=== PATIENT | female | born 1960 | race Caucasian/White ===

== ENCOUNTER → 2021-05-05 14:58 | Outpatient (CLI) | payer OTHER, SELFPAY ==
--- NOTE | 2021-05-05 | DI.RAD.S_ITS ---
PROCEDURE: XR THORACIC SPINE 2V INDICATIONS: UPPER BACK PAIN TECHNIQUE: 2 views of the thoracic spine were acquired. COMPARISON: None. FINDINGS: Bones: No fractures or dislocations. No suspicious bony lesions. 12 pairs of ribs are noted, and appear intact where visualized. Soft tissues: No paravertebral stripe thickening. IMPRESSION: No acute osseous abnormality. Dictated by: Jack Ram M.D. on 05/05/2021 at 17:16 Approved by: Jack Ram M.D. on 05/05/2021 at 17:18
--- NOTE | 2021-05-05 15:04 | DI.RAD.S_ITS ---
PROCEDURE: XR LUMBAR SPINE MIN 4V INDICATIONS: NECK AND BACK PAIN TECHNIQUE: 5 views of the lumbar spine were acquired, including bilateral oblique views. COMPARISON: None. FINDINGS: Bones: 5 nonrib-bearing vertebrae are present. There is loss of normal lumbar lordosis. Mild grade 1 retrolisthesis of L3 on L4. Mild multilevel disc space narrowing and endplate osteophyte formation, as well as facet hypertrophy throughout the mid and lower lumbar spine. No vertebral body compression fractures. No suspicious bony lesions. Soft tissues: Overlying bowel gas pattern is normal. No suspicious soft tissue calcifications. IMPRESSION: 1. Multilevel degenerative disc and facet disease. 2. No acute fracture. No osseous lesion. If symptoms and/or clinical suspicion for pathology persist, further assessment with repeat, or advanced imaging (e.g., CT, MRI, or bone scan) may be helpful for further assessment. Dictated by: Leobardo Del Rio M.D. on 05/05/2021 at 16:31 Approved by: Leobardo Del Rio M.D. on 05/05/2021 at 16:47
--- NOTE | 2021-05-05 15:04 | DI.RAD.S_ITS ---
PROCEDURE: XR CERVICAL SPINE 4V OR 5V INDICATIONS: NECK AND BACK PAIN TECHNIQUE: 5 views of the cervical spine acquired. COMPARISON: None. FINDINGS: Bones: No fractures or dislocations to the T2 level. Oblique images demonstrate no bony foraminal stenoses. Mild multilevel disc space narrowing and endplate osteophyte formation. Mild multilevel foraminal stenosis. Mild facet hypertrophy throughout the mid and lower lumbar spine. Soft tissues: No prevertebral soft tissue swelling. IMPRESSION: 1. Mild multilevel degenerative disc and facet disease. 2. No acute fracture. No osseous lesion. If symptoms and/or clinical suspicion for pathology persist, further assessment with repeat, or advanced imaging (e.g., CT, MRI, or bone scan) may be helpful for further assessment. Dictated by: Leobardo Del Rio M.D. on 05/05/2021 at 16:13 Approved by: Leobardo Del Rio M.D. on 05/05/2021 at 16:47
== END ==
PROVIDERS: PCP Student in an Organized Health Care Education/Training Program; Referring Provider Chiropractor; Visit Provider Chiropractor
DX: M99.01 Segmental and somatic dysfunction of cervical region (principal); M99.02 Segmental and somatic dysfunction of thoracic region; M99.03 Segmental and somatic dysfunction of lumbar region; M99.04 Segmental and somatic dysfunction of sacral region; M99.05 Segmental and somatic dysfunction of pelvic region; M54.50 Low back pain, unspecified; M50.30 Other cervical disc degeneration, unspecified cervical region; M48.02 Spinal stenosis, cervical region; M51.36 Other intervertebral disc degeneration, lumbar region
CPT/HCPCS: 72050; 72070; 72110

== ENCOUNTER → 2021-05-25 16:58 | Outpatient (CLI) | payer OTHER, SELFPAY ==
--- NOTE | 2021-05-25 | DI.MRI.S_ITS ---
PROCEDURE: MR LUMBAR SPINE WO CON INDICATIONS: Vertebrogenic low back pain TECHNIQUE: Noncontrast sagittal T1 spin echo and T2 fast echo, sagittal STIR, axial T1 and T2 fast spin echo through the lumbar spine. In cases with scoliosis, additional coronal T2 fast spin echo may be performed. COMPARISON: None. FINDINGS: Image quality: Excellent. Alignment and Curvature: There is trace retrolisthesis of L3 on L4, L4 on L5. Bone Marrow: Marrow is of normal overall signal. Minimal reactive endplate changes are present at multiple levels of the lumbar spine most notable at L3-4. Schmorl's node is noted along the inferior endplate of L1. No acute vertebral body compression fractures. Spinal Cord: Conus medullaris terminates at the L1 level. Visualized cord demonstrates normal signal and size. Paraspinous Soft Tissues: No paravertebral masses. Discs: Uibv-ie-wstmwsci desiccation is present throughout the lumbar spine most severe at L3-4. L1-L2: Mild disc bulge including a left posterior paracentral/proximal foramina superimposed protrusion. There is narrowing of the left lateral recess as well as very minimal narrowing of the proximal left foramina. Epidural lipomatosis is present as well as facet and ligamentum flavum hypertrophy. L2-L3: Mild disc bulge with minimal canal narrowing. No foraminal narrowing. Epidural lipomatosis as well as facet/ligamentum flavum hypertrophy are present. L3-L4: Mild disc bulge with minimal canal narrowing. Minimal to mild bilateral foraminal narrowing with facet and ligamentum flavum hypertrophy. Epidural lipomatosis is present. L4-L5: Mild disc bulge including a left lateral/foraminal component. Minimal canal narrowing. There is mild narrowing through the right subarticular recess as well as mild foraminal narrowing. Moderate foraminal narrowing is noted on the left. Epidural lipomatosis as well as facet/ligamentum flavum hypertrophy are present. L5-S1: Mild disc bulge without spinal stenosis. Moderate bilateral foraminal narrowing with facet hypertrophy. IMPRESSION: 1. Multilevel degenerative changes. 2. Multilevel minimal canal narrowing secondary to disc bulge, as well as presence of epidural lipomatosis. 3. Multilevel foraminal narrowing most notable at L5-S1, secondary to facet arthropathy. Dictated by: Merlyn Cm M.D. on 05/26/2021 at 8:54 Approved by: Merlyn Cm M.D. on 05/26/2021 at 9:15
== END ==
PROVIDERS: PCP Physician Assistant; Referring Provider Chiropractor; Visit Provider Chiropractor
DX: M54.51 Vertebrogenic low back pain (principal); M99.13 Subluxation complex (vertebral) of lumbar region; M47.816 Spondylosis without myelopathy or radiculopathy, lumbar region; M47.817 Spondylosis without myelopathy or radiculopathy, lumbosacral region; M48.07 Spinal stenosis, lumbosacral region; E88.2 Lipomatosis, not elsewhere classified
CPT/HCPCS: 72148

== ENCOUNTER → 2021-06-14 13:30 | Outpatient (CLI) | payer OTHER, SELFPAY ==
--- NOTE | 2021-06-14 13:32 | DI.RAD.S_ITS ---
PROCEDURE: XR SHOULDER LT MIN 2V INDICATIONS: shoulder pain TECHNIQUE: 3 views of the shoulder were acquired. COMPARISON: None. FINDINGS: Bones: No suspicious bony lesions. Visualized ribs appear intact. Scattered degenerative subchondral sclerosis and spurring. Possible Hill-Sachs fracture deformity, technically unknown age. Elsewhere, no acute fracture. Soft tissues: No suspicious soft tissue calcifications. IMPRESSION: Hill-Sachs fracture deformity suggestive of prior anterior shoulder dislocation. Technically this finding is of unknown age. Mild degenerative changes. If the patient's pain or other symptoms persist, consider further evaluation with MRI Dictated by: Markel Guallpa M.D. on 06/14/2021 at 15:42 Approved by: Markel Guallpa M.D. on 06/14/2021 at 16:11
--- NOTE | 2021-06-14 13:32 | DI.RAD.S_ITS ---
PROCEDURE: XR FOOT LT MIN 3V INDICATIONS: L foot pain and swelling in arch TECHNIQUE: 3 views of the foot were acquired. COMPARISON: None. FINDINGS: Bones: No acute fractures or dislocations. No suspicious bony lesions. Mild scattered degenerative changes in the interphalangeal joints of the toes. Soft tissues: No suspicious soft tissue calcification. IMPRESSION: No acute osseous abnormality. If clinical suspicion and/or symptoms persist, additional imaging with repeat plain films, or advanced imaging (e.g. CT, MRI) may be helpful for further assessment. Dictated by: Adrien Banda M.D. on 06/14/2021 at 14:07 Approved by: Adrien Banda M.D. on 06/14/2021 at 14:09
== END ==
PROVIDERS: PCP Physician Assistant; Referring Provider Nurse Practitioner Family; Visit Provider Nurse Practitioner Family
DX: M25.512 Pain in left shoulder (principal); M79.672 Pain in left foot; M79.89 Other specified soft tissue disorders
CPT/HCPCS: 73030; 73630

== ENCOUNTER → 2021-11-01 12:57 | Outpatient (CLI) | payer OTHER, SELFPAY | PROVIDERS: PCP Physician Assistant; Referring Provider Physician Assistant; Visit Provider Physician Assistant | DX: Z78.0 Asymptomatic menopausal state (principal); Z13.820 Encounter for screening for osteoporosis | CPT/HCPCS: 77080 ==

== ENCOUNTER → 2021-11-01 13:44 | Outpatient (CLI) | payer OTHER, SELFPAY ==
[2021-11-01 15:13] LABS: COVID19 -Nasal RAPID Negative (Negative)
== END ==
PROVIDERS: PCP Physician Assistant; Referring Provider Surgery; Visit Provider Surgery
DX: Z01.812 Encounter for preprocedural laboratory examination (principal); Z20.822 Contact with and (suspected) exposure to COVID-19
CPT/HCPCS: 87635; C9803

== ENCOUNTER 2021-11-02 09:46 | Day surgery (SDC) | payer OTHER, SELFPAY ==
--- NOTE | 2021-11-02 | PATH_ITS ---
[facility] Accession Number: [id number] . 01 Material submitted: . rectum - RECTAL BIOPSY . 02 Diagnosis: Rectum, Biopsy: Hyperplastic polyp. MRV 11/04/2021 1506 Local . 02 Electronically signed: . Alma Olivares MD, Pathologist NPI- [id number] . 01 Gross description: . RECTAL BIOPSY: Received in formalin is 1 fragment(s) of alaniz, soft tissue measuring 0.2 x 0.2 x 0.2 cm submitted entirely in 1 cassette(s) /CPE 11/03/2021 0827 Local . 02 Pathologist provided ICD-10: K63.5 . 02 CPT . 527296 Specimen Comment: A courtesy copy of this report has been sent to [phone] Performed at: 01 [facility] [address] [id number] MD Mihai Brunson MD Phone: [phone] Performed at: 02 [facility] [address] [place], [place] [id number] MD Alma Olivares MD Phone: [phone]
[2021-11-02 10:07] VITALS: BP 165/94; PULSE 64; RESP 16; TEMP 36.5; O2SAT 98; BMI 28.9
[2021-11-02] MEDS: LACTATED RINGERS 1,000 ML 200 ML IV (10:13)
[2021-11-02] MEDS: fentaNYL 250 MCG/5 ML INJ IV (10:38)
[2021-11-02] MEDS: MIDAZOLAM 5 MG/5 ML VIAL IV (10:39)
--- NOTE | 2021-11-02 10:47 | PM.HP.1 ---
History of Present Illness History of Present Illness Date Patient Seen: 11/02/21 Time Patient Seen: 10:47 Chief complaint: SCREENING COLONOSCOPY Narrative: The patient presents for colorectal screening. She had a previous colonoscopy several years ago that was significant for multiple adenomatous polyps. No personal or family history of colon cancer. On further history denies any recent gastrointestinal symptoms. No nausea, vomiting, abdominal pain, loss of appetite, unexplained weight loss, change in bowel habits, diarrhea, constipation, melena, hematochezia, or bright red blood per rectum. Patient History Family & Social History Social History: household members spouse Tobacco & Substance use: Smoking Status Never smoker alcohol intake current alcohol intake frequency a few times a week Substance Use Type does not use Meds Home Medications and Allergies Home Medications Medication Instructions Recorded Confirmed Type Progest-M 200 mg PO DAILY 11/02/21 11/02/21 History metoprolol succinate 25 mg 25 mg PO DAILY 11/02/21 11/02/21 History tablet,extended release 24 hr Allergies Allergy/AdvReac Type Severity Reaction Status Date / Time No Known Drug Allergies Allergy Verified 11/02/21 09:59 Exam Vital Signs (past 8 hours): - 11/02/21 10:07 Temperature 97.7 F Pulse Rate 64 Respiratory Rate 16 Blood Pressure 165/94 H Pulse Oximetry 98 Oxygen Delivery Method Room Air Narrative Exam Narrative: GENERAL: Adult in no apparent distress HEENT: No scleral icterus CV: Regular rate, no peripheral edema LUNGS: No increased work of breathing. Patient speaks in full sentences without oxygen support. ABDOMEN: Soft, non-tender, non-distended NEURO: Nonfocal, normal strength throughout, SKIN: Warm and dry Assessment & Plan Assessment and plan (1) Personal history of colonic polyps: Status: Acute Assessment & Plan narrative: The patient requires colorectal screening and colonoscopy is recommended. Technical details were discussed. Risks, benefits, alternatives explained. Risks including but not limited to myocardial infarction, aspiration, bleeding, pain, missed lesion, incomplete examination, need for further radiographic studies, colonic perforation, and need for major abdominal surgery were discussed. All questions were answered to their satisfaction, and they are in agreement with this plan. Time Spent With Patient Critical Care time: I spent a total of [] minutes of critical care time on this patient's care today; this time is exclusive of procedural time.
--- NOTE | 2021-11-02 11:17 | P.OP.COLON_ITS ---
Operative Date/Time/Diagnoses Date of procedure: 11/02/21 Time of procedure: 11:17 Pre-op diagnosis: Personal history of colonic polyps Post-op diagnosis: same Procedure & Clinicians Study performed: Colonoscopy and polypectomy Same procedure as scheduled: Yes Indications: Personal history of colonic polyps Surgeon: Uri Montanez Procedure Notes Procedure in detail: Medications: Conscious sedation using 4mg IV midazolam and 100mcg IV of f entanyl The history and physical was performed/updated and the patient is ASA class is 2. The procedure was discussed in detail with the patient. Potential risks complications including infection, bleeding, missed diagnosis, perforation, need for surgery, and were explained. Their questions were answered and informed consent was obtained. Patient was brought to the procedure room and placed standard monitoring equipment. The patient's vital signs were monitored continuously throughout the entire procedure. Prior to starting time-out was performed. The patient was placed in the left lateral recumbent position. Procedural sedation was administered. Examination began with a thorough inspection of the perianal area there was no evidence of fissures, fistulae, external hemorrhoids or cutaneous malignancy. The colonoscopy scope was then placed into the anal canal and was advanced to the cecum, which was identified by the ileocecal valve, the appendiceal orifice and the confluence of the taenia. The scope was then slowly withdrawn examining colon thoroughly in all directions, irrigating it of any residual stool. FINDINGS 1. Rectum 5 mm polyp removed with biopsy forceps 2. Internal hemorrhoids The patient tolerated the procedure well. They will be discharged once criteria are met. The prep was of good/excellent quality. The withdrawl time was 6minutes. The sedation time was 21 minutes. Specimen(s): other (Rectal polyp) Complications: none Impression: Colonic polyp Post-procedure Recommendations: Colonoscopy in 5 years Disposition: same day surgery
[2021-11-02 11:22] VITALS: BP 183/100; PULSE 63; RESP 17; TEMP 36.1; O2SAT 99
[2021-11-02 11:26] VITALS: BP 175/100; PULSE 59; RESP 16; TEMP 36.1; O2SAT 98
[2021-11-02 11:29] VITALS: BP 171/99; PULSE 58; RESP 14
[2021-11-02 11:38] VITALS: BP 147/94; PULSE 55; RESP 14; TEMP 36.1; O2SAT 98
[2021-11-02 11:43] VITALS: BP 154/92; PULSE 52; RESP 15; O2SAT 96
== END 2021-11-02 12:00 | disposition home or self-care (01) ==
PROVIDERS: PCP Physician Assistant; Referring Provider Surgery; Visit Provider Surgery
PROC: 0DJD8ZZ Inspection of Lower Intestinal Tract, Via Natural or Artificial Opening Endoscopic (ICD-10-PCS; CPT 45378; principal; 2021-11-02 10:45)
DX: Z12.11 Encounter for screening for malignant neoplasm of colon (principal); Z86.010 Personal history of colon polyps; K64.8 Other hemorrhoids; K62.1 Rectal polyp
CPT/HCPCS: 45380; 99152; J2250; J3010

== ENCOUNTER → 2021-11-19 14:25 | Outpatient (CLI) | payer OTHER, SELFPAY ==
--- NOTE | 2021-11-19 | DI.US.S_ITS ---
PROCEDURE: US RENAL COMPLETE INDICATIONS: Chronic kidney disease, stage 3a TECHNIQUE: Real-time scanning was performed of the kidneys and bladder, with image documentation. COMPARISON: None. FINDINGS: Kidneys: Kidneys are normal in size. Right kidney measures 11.4 cm long; left kidney measures 11.2 cm long. Right renal cortical thickness is 0.7 cm; left renal cortical thickness is 0.7 cm. Renal cortical echotexture is normal. No hydronephrosis or nephrolithiasis. No suspicious solid mass lesions. Bladder: Pre-void bladder volume is 154 mL. Post-void residual is 0 mL. Pre-void images demonstrate no intraluminal masses or stones. On pre-void images, neither right nor left ureteral jets are noted with color Doppler interrogation. (Of note, ureteral jets may not be detectable in up to 25% of cases due to insufficient differences in specific gravity between ureteral and bladder urine). Miscellaneous: No free pelvic fluid. IMPRESSION: Normal renal ultrasound. Dictated by: Davis Ivan M.D. on 11/19/2021 at 14:51 Approved by: Davis Ivan M.D. on 11/19/2021 at 14:53
== END ==
PROVIDERS: PCP Physician Assistant; Referring Provider Student in an Organized Health Care Education/Training Program; Visit Provider Student in an Organized Health Care Education/Training Program
DX: N18.31 Chronic kidney disease, stage 3a (principal)
CPT/HCPCS: 76770

== ENCOUNTER → 2022-01-10 15:24 | Outpatient (CLI) | payer OTHER, SELFPAY ==
--- NOTE | 2022-01-10 | DI.MG.S_ITS ---
BILATERAL DIGITAL SCREENING MAMMOGRAM 3D/2D WITH CAD: 01/10/2022 CLINICAL: Routine screening. Comparison is made to exam dated: 12/08/2020 mammogram - outside location. The tissue of both breasts is heterogeneously dense. This may lower the sensitivity of mammography. Current study was also evaluated with a Computer Aided Detection (CAD) system. No significant masses, calcifications, or other findings are seen in either breast. There has been no significant interval change. IMPRESSION: NEGATIVE There is no mammographic evidence of malignancy. A 1 year screening mammogram is recommended. This exam was interpreted at Station ID: [id number]. NOTE: For mammograms, a report in lay terms will be sent to the patient. Approximately 15% of breast malignancies will not be visualized mammographically. In the management of a palpable breast mass, a negative mammogram must not discourage biopsy of a clinically suspicious lesion. Electronically Signed By: Rio Weems M.D. attrent/sania:01/10/2022 17:37:38 letter sent: Normal Exam ACR BI-RADS Category 1: Negative [id number]
== END ==
PROVIDERS: PCP Physician Assistant; Referring Provider Internal Medicine; Visit Provider Internal Medicine
DX: Z12.31 Encounter for screening mammogram for malignant neoplasm of breast (principal)
CPT/HCPCS: 77063; 77067

== ENCOUNTER → 2022-04-06 08:07 | Outpatient (CLI) | payer BC, SELFPAY ==
[2022-04-06 09:48] LABS: Hematocrit 37.9 % (36-46); Hemoglobin 12.8 g/dL (12.0-16.0)
[2022-04-06 10:01] LABS: Appearance Urine UA CLEAR; Bilirubin Urine UA NEGATIVE (NEGATIVE); Color Urine UA YELLOW; Glucose Urine UA NEGATIVE (Negative); Ketones Urine UA NEGATIVE (NEGATIVE); Leukocyte Esterase Urine UA NEGATIVE (NEGATIVE); Nitrite Urine UA NEGATIVE (Negative); Occult Blood Urine UA NEGATIVE (Negative); Protein Urine UA NEGATIVE (Negative); Urobilinogen Urine UA 0.2 E.U./dL (0.2)
[2022-04-06 10:09] LABS: pH Urine UA 7.5 (4.5-8.0)
[2022-04-06 10:10] LABS: Bacteria Urine None Seen; Culture Indicated Urine Cult Not Indicated; RBC Urine None Seen (0-5/HPF); Squamous Epithelial Cell Urine 1-5 /HPF (0-5/HPF); WBC Urine 0-1/HPF (0-5/HPF)
[2022-04-06 10:35] LABS: Protein (Total) Urine Random 11 mg/dL (0-12); Protein Creatinine Ratio Urine 0.13 GRAM/24H
[2022-04-06 10:36] LABS: Blood Urea Nitrogen 18 mg/dL (7-17); Calcium 8.7 mg/dL (8.4-10.2); Carbon Dioxide 27 mmol/L (22-32); Chloride 104 mmol/L (98-107); Estimated Glomerular Filt Rate 39 mL/min (>60); Glucose 87 mg/dL (80-110); HEMOLYSIS < 15 (0-50); Phosphorous 3.3 mg/dL (2.8-4.1); Potassium 4.7 mmol/L (3.4-5.1); Sodium 137 mmol/L (137-145)
[2022-04-07 08:38] LABS: Parathyroid Hormone Int 54 pg/mL (15-65)
== END ==
PROVIDERS: PCP Internal Medicine; Referring Provider Student in an Organized Health Care Education/Training Program; Visit Provider Student in an Organized Health Care Education/Training Program
DX: N05.9 Unspecified nephritic syndrome with unspecified morphologic changes (principal); D64.9 Anemia, unspecified; E83.30 Disorder of phosphorus metabolism, unspecified; N25.81 Secondary hyperparathyroidism of renal origin; N30.00 Acute cystitis without hematuria; R80.9 Proteinuria, unspecified
CPT/HCPCS: 36415; 80048; 81001; 82570; 83970; 84100; 84156; 85014; 85018

== ENCOUNTER → 2022-04-29 10:43 | Outpatient (CLI) | payer BC, SELFPAY ==
[2022-04-29 14:48] LABS: BUN Creatinine Ratio 7.3 (6-22); Blood Urea Nitrogen 12 mg/dL (7-17); Calcium 8.7 mg/dL (8.4-10.2); Carbon Dioxide 26 mmol/L (22-32); Chloride 99 mmol/L (98-107); Estimated Glomerular Filt Rate 35 mL/min (>60); Glucose 101 mg/dL (80-110); HEMOLYSIS < 15 (0-50); Potassium 4.2 mmol/L (3.4-5.1); Sodium 134 mmol/L (137-145)
== END ==
PROVIDERS: PCP Internal Medicine; Referring Provider Student in an Organized Health Care Education/Training Program; Visit Provider Student in an Organized Health Care Education/Training Program
DX: N05.9 Unspecified nephritic syndrome with unspecified morphologic changes (principal)
CPT/HCPCS: 36415; 80048

== ENCOUNTER → 2022-05-11 07:08 | Outpatient (CLI) | payer BC, SELFPAY ==
--- NOTE | 2022-05-11 | DI.US.S_ITS ---
PROCEDURE: US RENAL COMPLETE INDICATIONS: ACUTE RENAL FAILURE SYNDROM TECHNIQUE: Real-time scanning was performed of the kidneys and bladder, with image documentation. COMPARISON: [facility], , RENAL COMPLETE, 11/19/2021, 14:31. FINDINGS: Kidneys: Kidneys are normal in size. Right kidney measures 10.6 cm long; left kidney measures 0.6 cm long. Right renal cortical thickness is 10.8 cm; left renal cortical thickness is 1.6 cm. Renal cortical echotexture is normal. No hydronephrosis or nephrolithiasis. No suspicious solid mass lesions. Bladder: Pre-void bladder volume is 299 mL. Post-void residual is 0 mL. Pre-void images demonstrate no intraluminal masses or stones. On pre-void images, bilateral ureteral jets are noted with color Doppler interrogation. (Of note, ureteral jets may not be detectable in up to 25% of cases due to insufficient differences in specific gravity between ureteral and bladder urine). Miscellaneous: No free pelvic fluid. IMPRESSION: Normal sized kidneys with no evidence of hydronephrosis. Dictated by: Vasquez Saldana M.D. on 05/11/2022 at 10:38 Approved by: Vasquez Saldana M.D. on 05/11/2022 at 10:41
== END ==
PROVIDERS: PCP Internal Medicine; Referring Provider Student in an Organized Health Care Education/Training Program; Visit Provider Student in an Organized Health Care Education/Training Program
DX: N17.9 Acute kidney failure, unspecified (principal)
CPT/HCPCS: 76770

== ENCOUNTER → 2022-05-20 09:46 | Outpatient (CLI) | payer BC, SELFPAY ==
[2022-05-20 11:01] LABS: Appearance Urine UA SL CLOUDY; Bilirubin Urine UA NEGATIVE (NEGATIVE); Color Urine UA YELLOW; Glucose Urine UA NEGATIVE (Negative); Ketones Urine UA NEGATIVE (NEGATIVE); Leukocyte Esterase Urine UA NEGATIVE (NEGATIVE); Nitrite Urine UA NEGATIVE (Negative); Occult Blood Urine UA NEGATIVE (Negative); Protein Urine UA NEGATIVE (Negative); Specific Gravity Urine UA <=1.005 (1.000-1.035); Urobilinogen Urine UA 0.2 E.U./dL (0.2)
[2022-05-20 11:23] LABS: RBC Urine None Seen (0-5/HPF); WBC Urine 0-1/HPF (0-5/HPF)
[2022-05-20 11:24] LABS: Squamous Epithelial Cell Urine 10-30 /HPF (0-5/HPF)
[2022-05-20 11:25] LABS: Bacteria Urine Many (>30); Culture Indicated Urine Cult Not Indicated
[2022-05-20 12:02] LABS: Creatinine Urine Random 36.3 mg/dL; Protein (Total) Urine Random 14 mg/dL (0-12); Protein Creatinine Ratio Urine 0.38 GRAM/24H
[2022-05-20 12:03] LABS: BUN Creatinine Ratio 10.7 (6-22); Blood Urea Nitrogen 17 mg/dL (7-17); Calcium 9.3 mg/dL (8.4-10.2); Carbon Dioxide 27 mmol/L (22-32); Chloride 101 mmol/L (98-107); Estimated Glomerular Filt Rate 37 mL/min (>60); Glucose 90 mg/dL (80-110); HEMOLYSIS < 15 (0-50); Potassium 4.7 mmol/L (3.4-5.1); Sodium 137 mmol/L (137-145)
== END ==
PROVIDERS: PCP Internal Medicine; Referring Provider Student in an Organized Health Care Education/Training Program; Visit Provider Student in an Organized Health Care Education/Training Program
DX: N05.9 Unspecified nephritic syndrome with unspecified morphologic changes (principal); N30.00 Acute cystitis without hematuria; R80.9 Proteinuria, unspecified
CPT/HCPCS: 36415; 80048; 81001; 82570; 84156

== ENCOUNTER → 2022-10-06 09:51 | Outpatient (CLI) | payer BC, SELFPAY ==
[2022-10-06 10:47] LABS: Hematocrit 40.5 % (36-46); Hemoglobin 13.6 g/dL (12.0-16.0)
[2022-10-06 10:57] LABS: Creatinine Urine Random 76.1 mg/dL; Protein (Total) Urine Random 11 mg/dL (0-12); Protein Creatinine Ratio Urine 0.14 GRAM/24H
[2022-10-06 11:06] LABS: Blood Urea Nitrogen 16 mg/dL (7-17); Calcium 9.3 mg/dL (8.4-10.2); Carbon Dioxide 30 mmol/L (22-32); Chloride 99 mmol/L (98-107); Estimated Glomerular Filt Rate 40 mL/min (>60); Glucose 91 mg/dL (80-110); HEMOLYSIS < 15 (0-50); Potassium 4.7 mmol/L (3.4-5.1); Sodium 135 mmol/L (137-145)
[2022-10-08 07:30] LABS: Parathyroid Hormone Int 31 pg/mL (15-65)
== END ==
PROVIDERS: PCP Internal Medicine; Referring Provider Student in an Organized Health Care Education/Training Program; Visit Provider Student in an Organized Health Care Education/Training Program
DX: N05.9 Unspecified nephritic syndrome with unspecified morphologic changes (principal); D64.9 Anemia, unspecified; R80.9 Proteinuria, unspecified; N25.81 Secondary hyperparathyroidism of renal origin
CPT/HCPCS: 36415; 80048; 82570; 83970; 84156; 85014; 85018

== ENCOUNTER → 2023-01-11 10:06 | Outpatient (CLI) | payer BC, SELFPAY ==
--- NOTE | 2023-01-11 | DI.MG.S_ITS ---
BILATERAL DIGITAL SCREENING MAMMOGRAM 3D/2D WITH CAD: 01/11/2023 CLINICAL: Routine screening. Comparison is made to exams dated: 01/10/2022 mammogram - [facility] and 12/08/2020 mammogram - outside location. Both breasts are heterogeneously dense, which may obscure small masses (category c / 51-75% glandular tissue). Current study was also evaluated with a Computer Aided Detection (CAD) system. No significant masses, calcifications, or other findings are seen in either breast. There has been no significant interval change. IMPRESSION: NEGATIVE There is no mammographic evidence of malignancy. A 1 year screening mammogram is recommended. Based on the Tyrer Cuzick model (a risk assessment model) the patient's lifetime risk is 11.3% and her 10 year risk is 4.9%. According to the ACR, ACS, and NCCN guidelines, an annual breast MRI exam along with mammogram is recommended if the patient's lifetime risk is 20% or greater. This exam was interpreted at Station ID: [id number]. NOTE: For mammograms, a report in lay terms will be sent to the patient. Approximately 15% of breast malignancies will not be visualized mammographically. In the management of a palpable breast mass, a negative mammogram must not discourage biopsy of a clinically suspicious lesion. Electronically Signed By: Mt mckeon/sania:01/11/2023 15:31:30 copy to: CASSIA DELGADO letter sent: Normal Exam ACR BI-RADS Category 1: Negative [id number]
== END ==
PROVIDERS: PCP Internal Medicine; Referring Provider Internal Medicine; Visit Provider Internal Medicine
DX: Z12.31 Encounter for screening mammogram for malignant neoplasm of breast (principal)
CPT/HCPCS: 77063; 77067

== ENCOUNTER → 2023-03-10 10:33 | Outpatient (CLI) | payer BC, SELFPAY ==
[2023-03-10 12:12] LABS: Hematocrit 40.6 % (36-46); Hemoglobin 13.6 g/dL (12.0-16.0)
[2023-03-10 12:44] LABS: BUN Creatinine Ratio 9.7 (6-22); Blood Urea Nitrogen 15 mg/dL (7-17); Calcium 9.5 mg/dL (8.4-10.2); Carbon Dioxide 27 mmol/L (22-32); Chloride 99 mmol/L (98-107); Estimated Glomerular Filt Rate 38 mL/min (>60); Glucose 75 mg/dL (80-110); HEMOLYSIS < 15 (0-50); Potassium 4.7 mmol/L (3.4-5.1); Sodium 133 mmol/L (137-145)
[2023-03-10 14:01] LABS: Creatinine Urine Random 155.5 mg/dL
[2023-03-10 14:02] LABS: Protein (Total) Urine Random < 5 mg/dL (0-12); Protein Creatinine Ratio Urine 0.03 GRAM/24H
[2023-03-12 07:07] LABS: Parathyroid Hormone Int 14 pg/mL (15-65)
== END ==
PROVIDERS: PCP Internal Medicine; Referring Provider Student in an Organized Health Care Education/Training Program; Visit Provider Student in an Organized Health Care Education/Training Program
DX: N05.9 Unspecified nephritic syndrome with unspecified morphologic changes (principal); D64.9 Anemia, unspecified; N25.81 Secondary hyperparathyroidism of renal origin; R80.9 Proteinuria, unspecified
CPT/HCPCS: 36415; 80048; 82570; 83970; 84156; 85014; 85018